=== PATIENT | female | born 1965 | race Caucasian/White ===

== ENCOUNTER 2016-05-01 19:19 | Emergency (ER) | payer BC ==
[2016-05-01 19:41] VITALS: BP 117/76
--- NOTE | 2016-05-01 20:06 | EDM.PDOC ---
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 She did not hit her head and she has no LOC. She has some pain in her neck from her left shoulder. She has no chest pain or abdominal pain. This happened 2 days ago. Occurred When: other (2 days ago) Occurred Where: work Method of Injury: fall Severity: moderate Pain/Injury Location: Reports: upper extremity, left (Shoulder), lower extremity , right (hip) Consciousness: Reports: no loss of consciousness Associated Symptoms: Reports: no other symptoms Allergies/ADRs: Allergies No Known Allergies Allergy (Verified 05/01/16 19:37) Home Medications: Ambulatory Orders Hydrocodone/Acetaminophen [Hydrocodon-Acetaminophen 5-325] 1 - 2 each PO Q6HR PRN #20 tablet 05/01/16 Past Medical History Gastrointestinal History: Reports: Celiac disease - Past Surgical History HEENT Surgical History: Reports: Adenoidectomy, Naso-sinus surgery, Tonsillectomy Musculoskeletal Surgical History: Reports: Shoulder surgery, Other (see below) Other Musculoskeletal Surgeries/Procedures:: thumb fused; knee surgery; cervical spine fused Social & Family History - Tobacco Use Smoking Status *Q: Former Smoker - Caffeine Use Caffeine Use: Reports: Coffee - Recreational Drug Use Recreational Drug Use: No Review of Systems - Review of Systems Review Of Systems: See Below Constitutional: Reports: no symptoms Eyes: Reports: no symptoms Ears: Reports: no symptoms Nose: Reports: no symptoms Mouth/Throat: Reports: no symptoms Respiratory: Reports: No Symptoms Cardiovascular: Reports: no symptoms GI/Abdominal: Reports: No symptoms Genitourinary: Reports: no symptoms Musculoskeletal: Reports: shoulder pain, other (Right hip pain) Skin: Reports: no symptoms Trauma Exam - Physical Exam Exam: See Below Exam Limited By: No limitations General Appearance: Reports: alert, no apparent distress Head: Reports: atraumatic, normocephalic Ears: Reports: normal external exam Nose: Reports: normal inspection Neck: Reports: non-tender, normal alignment, normal inspection Respiratory Exam: Reports: no respiratory distress, lungs clear, normal breath sounds Cardiovascular: Reports: regular rate, rhythm, no edema, no murmur GI/Abdominal: Reports: soft, non tender, no organomegaly Back: Reports: non-tender Extremities: Reports: other (Pain upon palpation to the lateral shoulder with good sensation and pulses distally. She has no deformity noted. She has pain upon palpation to the right posterior hip and pelvis.) Course - Vital Signs Last Recorded V/S: Last Vital Signs Temp 98.1 F 05/01/16 19:38 Pulse 90 05/01/16 19:38 Resp 16 05/01/16 19:38 BP 117/76 05/01/16 19:38 Pulse Ox 100 05/01/16 19:38 - Orders/Labs/Meds Orders: Active Orders 24 hr Category Date Time Status Hip Min 2V or 3V w Pelvis Rt [CR] Stat Exams 05/01/16 19:47 Taken Shoulder Comp Lt [CR] Stat Exams 05/01/16 19:46 Taken - Re-Assessments/Exams Free Text/Narrative Re-Assessment/Exam: 05/01/16 20:30 Her x-rays do not show any fracture. I will get her some hydrocodone for pain and follow up with Dr Duenas. She had surgery 30 years ago in that left shoulder. Departure - Departure Time of Disposition: 20:35 Disposition: Home, Self-Care 01 Condition: good Clinical Impression: Fall Qualifiers: Encounter type: initial encounter Qualified Code(s): W19.XXXA - Unspecified fall, initial encounter Contusion of left shoulder Qualifiers: Encounter type: initial encounter Qualified Code(s): S40.012A - Contusion of left shoulder, initial encounter Contusion of right hip Qualifiers: Encounter type: initial encounter Qualified Code(s): S70.01XA - Contusion of right hip, initial encounter Prescriptions: Hydrocodone/Acetaminophen [Hydrocodon-Acetaminophen 5-325] 1 - 2 each PO Q6HR PRN #20 tablet PRN Reason: Pain Referrals: Malcom Duenas MD [Physician] - 2 Weeks (If not better) Forms: ED Department Discharge Additional Instructions: Ice your shoulder and hip for 15 minutes every other hour while awake for 2 days. Take the hydrocodone for pain or motrin. Follow up with Dr Duenas if not better in 2 weeks. Please return if you are worse. - My Orders Last 24 Hours: My Active Orders 05/01/16 19:46 Shoulder Comp Lt [CR] Stat 05/01/16 19:47 Hip Min 2V or 3V w Pelvis Rt [CR] Stat - Assessment/Plan Last 24 Hours: My Active Orders 05/01/16 19:46 Shoulder Comp Lt [CR] Stat 05/01/16 19:47 Hip Min 2V or 3V w Pelvis Rt [CR] Stat
--- NOTE | 2016-05-02 12:21 | CR ---
Right hip with pelvis: AP view of the pelvis was obtained as well as AP and frog-leg lateral views of the right hip. Mixed sclerotic and lucent lesion seen within the intertrochanteric region of the right hip. I believe that this has a benign appearance and likely is chronic. Joint spaces are maintained within both hips and within the sacroiliac joints. No acute fracture or other abnormality is appreciated. Impression: 1. Bone lesion as noted above believed to be benign. 2. Nothing acute is identified on AP pelvis or on two-view right hip exam. Diagnostic code #2
--- NOTE | 2016-05-02 12:21 | CR ---
Left shoulder: Four views of the left shoulder were obtained. Comparison: No previous study. Previous shoulder surgery is seen. Mild osteophyte seen off the inferior glenoid. Acromioclavicular joint is unremarkable. No acute fracture or other abnormality is seen. Impression: 1. Previous surgery within the left shoulder. Mild degenerative change seen inferiorly within the glenohumeral joint. 2. Nothing acute is seen. Diagnostic code #2
== END 2016-05-01 20:40 | disposition home or self-care (01) ==
LOC: JD.ED 19:19
DX: S40.012A Contusion of left shoulder, initial encounter (principal); S70.01XA Contusion of right hip, initial encounter; W17.89XA Other fall from one level to another, initial encounter; K90.0 Celiac disease; Z87.891 Personal history of nicotine dependence
CPT/HCPCS: 73030-26-LT; 73030-LT; 73502-26-RT; 73502-RT; 99283

== ENCOUNTER 2017-06-08 14:09 | Emergency (ER) | payer BC, OTHER ==
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
[2017-06-08] MEDS ORDERED: Ondansetron 4 MG/2 ML SDV IVPUSH ONE (14:28)
[2017-06-08] MEDS ORDERED: Sodium Chloride 0.9% 1,000 ML IV SCH (14:30)
--- NOTE | 2017-06-08 15:01 | CT ---
Head CT Technique: Multiple axial sections through the brain were obtained. Intravenous contrast was not utilized. Comparison: No previous intracranial imaging. Findings: Motion artifact is seen on several base cuts and these images were repeated. Ventricles along with basal cisterns and sulci over the convexities are within normal limits for the patient's age. No abnormal parenchymal densities are seen. No evidence of intracranial hemorrhage. No midline shift or mass effect is seen. Visualized sinuses are clear with no acute change. No acute calvarial abnormality is seen. Impression: 1. Nothing acute is seen on noncontrast head CT study. Diagnostic code #1
--- NOTE | 2017-06-08 15:20 | CT ---
CT cervical spine Technique: Multiple axial sections were obtained from above C1 inferiorly to below T2. Comparison: No prior cervical spine imaging. Findings: Posterior skull base is intact. Mastoid sinuses and middle ear cavities are clear. Anterior plate and screws are identified at C5-C6 and C6-C7. Moderate disc space narrowing noted at C3-C4 with mild diffuse posterior disc bulge and mild posterior osteophytes. Slight posterolateral osteophytes are noted at C2-C3 more prominent on the right side projecting into the neural foramina causing minimal right-sided neural foraminal stenosis. Neural foramina on the left side at C2-C3 is preserved. Minimal left-sided neural foraminal stenosis is noted at C3-C4. Minimal right-sided neural foraminal stenosis is noted at C6-C7 due to posterolateral spurring. Lesser spurring is noted into the left neural foramina causing minimal left-sided neural foraminal stenosis. Other neural foramina are patent. Mild degenerative apophyseal change is scattered throughout the cervical spine. No bony central canal stenosis is seen. Vertebral bodies and posterior arches are intact with no fracture being seen. Minimal degenerative change is noted within both temporomandibular joints. Scoliosis is seen. Degenerative spurring within the uncovertebral joints noted at C2-C3, C3-C4 and lesser at C4-C5. Impression: 1. Previous surgery at C5-C6 and C6-C7. 2. Degenerative change as noted above. Scoliosis is present. 3. No acute fracture or abnormal subluxation is seen. Diagnostic code #2
[2017-06-08 16:02] VITALS: BP 108/69
[2017-06-08] MEDS ORDERED: Ketorolac 30 MG/ML SDV IVPUSH ONE (16:10)
[2017-06-08] MEDS ORDERED: levETIRAcetam 500 MG Tab PO ONE (16:52)
--- NOTE | 2017-06-09 07:37 | CR ---
Pelvis: AP view of the pelvis was obtained. Comparison: Prior pelvis and right hip study of 05/01/16. Slight sclerosis and cystic change is noted within the intertrochanteric region of the right hip which is stable and benign-appearing. Joint spaces within both hips and sacroiliac joints appear preserved. No acute fracture or other abnormality is appreciated. Impression: 1. Incidental finding. Nothing acute is seen on AP pelvis study. Diagnostic code #2
== END 2017-06-08 17:10 | disposition home or self-care (01) ==
LOC: JD.ED 14:09
DX: R41.0 Disorientation, unspecified (principal); T37.8X5A Adverse effect of other specified systemic anti-infectives and antiparasitics, initial encounter; T38.0X5A Adverse effect of glucocorticoids and synthetic analogues, initial encounter; G40.909 Epilepsy, unspecified, not intractable, without status epilepticus; Z79.899 Other long term (current) drug therapy; Z88.5 Allergy status to narcotic agent; Z87.891 Personal history of nicotine dependence
CPT/HCPCS: 70450; 72125; 72170; 80053; 80177; 80306; 83605; 85025; 86140; 93005; 96361; 96374; 96375; 99285; G0480; J1885; J2405; J7040; 36415; 93010

== ENCOUNTER 2021-12-13 21:05 | Emergency (ER) | payer BC, OTHER ==
[2021-12-13] MEDS ORDERED: Morphine 4 MG/ML Syringe ONE ×2 (21:50→21:56)
[2021-12-13] MEDS ORDERED: LORazepam 2 MG/ML SDV ONE (21:57)
[2021-12-13] MEDS ORDERED: Iopamidol 755 Mg/ML 100 ML Bottle IVPUSH ONE (22:53)
[2021-12-14] MEDS ORDERED: Potassium Chloride 20 MEQ Tab.ER PO ONE (01:48)
[2021-12-14] MEDS ORDERED: cefTRIAXone 1 GM in Sodium Chloride 0.9% 100 ML IV ONE (02:44)
[2021-12-14] MEDS ORDERED: Acetaminophen/HYDROcodone 325-5 MG Tab PO ONE (05:08)
[2021-12-14] MEDS ORDERED: Acetaminophen/HYDROcodone 325-5 MG Tab ONE (05:17)
[2021-12-14 05:46] VITALS: BP 104/68; PULSE 95
== END 2021-12-14 06:48 | disposition home or self-care (01) ==
LOC: JD.ED 21:05
DX: R07.89 Other chest pain (principal); N39.0 Urinary tract infection, site not specified; Z88.5 Allergy status to narcotic agent; Z79.899 Other long term (current) drug therapy
CPT/HCPCS: 36415; 36600; 71275; 74177; 80053; 80306; 80307; 81001; 82803; 83735; 84484; 85025; 85610; 85730; 93005; 96365; 96375; 99285; A9270; J0696; J2060; J2270; Q9967; 87086